=== PATIENT | male | born 2000 | race African-American/Black ===

== ENCOUNTER 2022-02-16 12:55 | Emergency (ER) | payer BC, MEDICAID ==
[~2022-02-16] VITALS: Ht 180.3 cm; Wt 80.0 kg
[2022-02-16] MEDS ORDERED: KETOROLAC 30MG/ML VIAL IM ONE (13:30)
[2022-02-16 14:15] VITALS: BP 103/50
== END 2022-02-16 14:20 | disposition home or self-care (01) ==
LOC: ER 12:55
DX: M54.9 Dorsalgia, unspecified (principal)
CPT/HCPCS: 96372; 99283; J1885

== ENCOUNTER 2022-02-20 21:07 | Emergency (ER) | payer BC, MEDICAID | END 2022-02-20 22:54 | disposition left against medical advice (07) | LOC: ER 21:07 | DX: Z53.21 Procedure and treatment not carried out due to patient leaving prior to being seen by health care provider (principal) ==

== ENCOUNTER 2022-03-03 10:45 | Emergency (ER) | payer BC, MEDICAID ==
[~2022-03-03] VITALS: Ht 177.8 cm; Wt 91.0 kg
[2022-03-03 10:49] VITALS: BP 119/72
[2022-03-03] MEDS ORDERED: ACETAMINOPHEN 325MG TABLET PO ONE (11:00)
[2022-03-03] MEDS ORDERED: IBUP-2029 MT (11:09)
== END 2022-03-03 11:20 | disposition home or self-care (01) ==
LOC: ER 11:19
DX: M54.50 Low back pain, unspecified (principal)
CPT/HCPCS: 99282